=== PATIENT | female | born 1960 | race Caucasian/White ===

== ENCOUNTER → 2017-05-15 | Outpatient (CLI) | payer BC, MEDICARE ==
[2017-05-15 17:38] LABS: Basophils # (A) 0.1 k/uL (0-0.2); Basophils % (A) 1 %; Eosinophils # (A) 0.2 k/uL (0-0.7); Eosinophils % (A) 2 %; HCT 40.8 % (34.0-46.0); HGB 12.5 gm/dL (11.4-16.0); Hypochromasia Moderate; Lymphocytes % (A) 30 %; MCH 26.7 pg (25.0-35.0); MCHC 30.7 g/dL (31.0-37.0); MCV 86.8 fL (80.0-100.0); Mean Platelet Volume 6.5; Monocytes # (A) 0.5 k/uL (0-1.0); Monocytes % (A) 5 %; Neutrophils # (A) 6.3 k/uL (1.3-7.7); Neutrophils % (A) 61 %; Platelet Count 362 k/uL (150-450); RDW 13.5 % (11.5-15.5); WBC 10.3 k/uL (3.8-10.6)
== END | disposition home or self-care (01) ==
LOC: LABPAT 17:13
PROVIDERS: ATTEND Obstetrics & Gynecology Obstetrics
DX: Z01.818 Encounter for other preprocedural examination (principal); Z01.812 Encounter for preprocedural laboratory examination; I10 Essential (primary) hypertension; R93.8 Abnormal findings on diagnostic imaging of other specified body structures
CPT/HCPCS: 36415; 85025; 93005

== ENCOUNTER 2017-05-23 10:24 | Day surgery (SDC) | payer BC ==
[2017-05-12 15:51] VITALS: BMI 45.2
[~2017-05-23 10:24] MED LIST: DEXAMETHASONE SOD PHOSPHATE 10 MG/ML 1 ML VIAL IV ONE; LACTATED RINGERS 1,000 ML IV SCH; MIDAZOLAM 2 MG/2 ML VIAL IV PRN; MORPHINE SULFATE 4 MG/ML SYRINGE IV PRN; ONDANSETRON 4 MG/2 ML VIAL IVP ONE; Pre Op ABX Message 1 EACH MISC MISCELLANE ONE; SCOPOLAMINE 1.5MG/72HR PATCH TRANSDERM ONE
[2017-05-23] MEDS ORDERED: fentaNYL (PF) 50 MCG/ML 2 ML AMP ONE (12:02)
[2017-05-23] MEDS ORDERED: MIDAZOLAM 2 MG/2 ML VIAL ONE (12:02)
[2017-05-23] MEDS ORDERED: LIDOCAINE 1% INJ 10MG/ML (20 ML MDV) ONE (12:02)
[2017-05-23] MEDS ORDERED: PROPOFOL 10 MG/ML 20 ML VIAL IV ONE (12:02)
[2017-05-23] MEDS ORDERED: SUCCINYLCHOLINE CHLORIDE 100 MG/5 ML SYR IV ONE (12:02)
--- NOTE | 2017-05-23 12:35 | P.OP ---
Date of Procedure: 05/23/17 Preoperative Diagnosis: Simple hyperplasia noted on endometrial biopsy Postoperative Diagnosis: Same Procedure(s) Performed: Hysteroscopy, dilation and curettage Anesthesia: CONRADA Surgeon: Kaylan Villa Estimated Blood Loss (ml): 5 IV fluids (ml): 600 Urine output (ml): 50 Pathology: other (Endometrial curettings) Condition: stable Disposition: PACU Indications for Procedure: Patient had noted post menopausal bleeding biopsy in the office was consistent with simple hyperplasia without atypia although scant specimen was noted therefore she is presents today for further evaluation of the endometrial cavity Operative Findings: Atrophic appearing endometrium with small cavity Description of Procedure: Patient was taken to the operating room where general anesthesia was obtained by the anesthesia Department without difficulty. She was then prepped and draped in normal sterile fashion in the dorsal lithotomy position a red rubber catheter was then used to drain the bladder clear yellow urine. A weighted speculum was placed in the posterior vaginal vault the anterior lip of the cervix was visualized and grasped with an Allis. Endocervical canal was then dilated to 15-Macanese and hysteroscope was placed through the cervix with endometrial cavity intact cavity was noted and an atrophic appearing endometrium was noted. At this point the hysteroscope was removed and a sharp curettage was performed until a gritty texture was noted in all 4 quadrants the uterine cavity. A scant sample was was obtained. The Allis was removed from the anterior lip and hemostasis was appreciated. All counts are correct 2 and patient tolerated procedure well
[2017-05-23 13:01] VITALS: TEMP 97
[2017-05-23] MEDS ORDERED: ALBUTEROL NEBULIZED 2.5 MG/3 ML INHALATION STA (13:44)
[2017-05-23 13:53] VITALS: BP 165/89
[2017-05-23 14:23] VITALS: PULSE 67; RESP 18
== END 2017-05-23 14:30 | disposition home or self-care (01) ==
LOC: OR 10:24
PROVIDERS: ATTEND Obstetrics & Gynecology Obstetrics
DX: N85.01 Benign endometrial hyperplasia (principal); N95.0 Postmenopausal bleeding; J45.909 Unspecified asthma, uncomplicated; I10 Essential (primary) hypertension; Z79.899 Other long term (current) drug therapy; Z88.6 Allergy status to analgesic agent; Z88.8 Allergy status to other drugs, medicaments and biological substances; F17.210 Nicotine dependence, cigarettes, uncomplicated
CPT/HCPCS: 94640; 88305; 58558; J2250; J1100; J2405; J2001; J3010; J0330; J2704

== ENCOUNTER → 2017-11-08 | Outpatient (CLI) | payer BC ==
[2017-11-08 10:11] LABS: T4, Free (Free Thyroxine) 1.01 ng/dL (0.78-2.19)
== END | disposition home or self-care (01) ==
LOC: LABWHC1 09:11
PROVIDERS: ATTEND Internal Medicine Endocrinology, Diabetes & Metabolism
DX: E05.90 Thyrotoxicosis, unspecified without thyrotoxic crisis or storm (principal)
CPT/HCPCS: 36415; 84439; 84443; 84480

== ENCOUNTER → 2017-11-17 | Outpatient (CLI) | payer BC ==
--- NOTE | 2017-11-17 13:32 | US ---
EXAMINATION TYPE: US thyroid st tissue head/neck DATE OF EXAM: 11/17/2017 COMPARISON: NONE CLINICAL HISTORY: E05.90 SUBCLINICAL HYPERTHYROIDISM. GLAND SIZE: Right Lobe: 4.4 x 1.4 x 1.5 cm Overall Parenchyma: homogenous Left Lobe: 4.8 x 1.8 x 1.8 cm Overall Parenchyma: homogeneous Isthmus Thickness: 0.3 cm NODULES RIGHT: # of nodules measured on right: 0 LEFT: # of nodules measured on left: several scattered, largest two measured 1. 0.7 X 0.6 x 1.0 cm complex cystic nodule at the anterior mid to upper pole with margins. This n odule is wider than tall and shows no intranodular vascularity. 2. 0.6 X 0.4 x 0.4 cm hypoechoic solid nodule at the posterior mid pole with poorly defined margins. This nodule is taller than wide and shows intranodular vascularity. ISTHMUS: # of nodules measured in the isthmus: 0 Bilateral neck scanned, no evidence of lymphadenopathy. IMPRESSION: Multiple scattered subcentimeter left thyroid nodules and prominent size of the left thyroid lobe. No nodules meet criteria for fine-needle aspiration and therefore surveillance is recommended.
== END | disposition home or self-care (01) ==
LOC: RADUSWWP 12:09
PROVIDERS: ATTEND Internal Medicine Endocrinology, Diabetes & Metabolism
DX: E04.2 Nontoxic multinodular goiter (principal); E05.90 Thyrotoxicosis, unspecified without thyrotoxic crisis or storm
CPT/HCPCS: 76536

== ENCOUNTER → 2018-06-08 | Outpatient (CLI) | payer BC, OTHER | END | disposition home or self-care (01) | LOC: LABWHC1 14:38 | PROVIDERS: ATTEND Internal Medicine Endocrinology, Diabetes & Metabolism | DX: E05.90 Thyrotoxicosis, unspecified without thyrotoxic crisis or storm (principal) | CPT/HCPCS: 36415; 84439; 84443; 84480 ==

== ENCOUNTER → 2018-09-25 | Outpatient (CLI) | payer BC | END | disposition home or self-care (01) | LOC: LABWHC1 14:42 | PROVIDERS: ATTEND Internal Medicine Endocrinology, Diabetes & Metabolism | DX: E05.90 Thyrotoxicosis, unspecified without thyrotoxic crisis or storm (principal) | CPT/HCPCS: 36415; 84439; 84443; 84480 ==

== ENCOUNTER → 2019-01-11 | Outpatient (CLI) | payer BC ==
[2019-01-11 10:04] LABS: HCT 41.2 % (34.0-46.0); HGB 12.6 gm/dL (11.4-16.0); Hypochromasia Moderate; MCH 25.6 pg (25.0-35.0); MCHC 30.6 g/dL (31.0-37.0); MCV 83.9 fL (80.0-100.0); Mean Platelet Volume 6.3; Platelet Count 399 k/uL (150-450); RBC 4.91 m/uL (3.80-5.40); RDW 14.5 % (11.5-15.5); WBC 10.2 k/uL (3.8-10.6)
[2019-01-11 17:41] LABS: Ferritin 36.4 ng/mL (10.0-291.0)
[2019-01-11 17:42] LABS: Estradiol 29.9 pg/mL; Follicle Stimulating Hormone 33.8 mIU/mL
[2019-01-11 17:47] LABS: Vitamin D 25 Hydroxy 33.6 ng/mL (30.0-100.0)
== END | disposition home or self-care (01) ==
LOC: LABWHC1 09:29
PROVIDERS: ATTEND Internal Medicine Endocrinology, Diabetes & Metabolism
DX: D64.9 Anemia, unspecified (principal); E66.9 Obesity, unspecified; L65.9 Nonscarring hair loss, unspecified
CPT/HCPCS: 36415; 82088; 82306; 82670; 82728; 83001; 83002; 84439; 84443; 84480; 85027

== ENCOUNTER → 2019-01-21 | Outpatient (CLI) | payer BC ==
--- NOTE | 2019-01-22 07:45 | US ---
EXAMINATION TYPE: US thyroid st tissue head/neck DATE OF EXAM: 01/21/2019 COMPARISON: Thyroid ultrasound dated 10/02/2018 and 11/17/2017 CLINICAL HISTORY: E04.2 Multinodular goiter. GLAND SIZE: Right Lobe: 4.9 x 1.5 x 1.6 cm Overall Parenchyma: homogenous Left Lobe: 4.9 x 2.1 x 1.9 cm Overall Parenchyma: homogeneous Isthmus Thickness: 0.3 cm NODULES RIGHT: # of nodules measured on right: 0 LEFT: # of nodules measured on left: 2 1. 0.6 X 0.4 x 0.5 cm hypoechoic mixed nodule at the upper pole with well-defined margins; . This nodule is wider than tall and shows no intranodular vascularity. Prior size: 0.6 x 0.5 x 0.6 cm 2. 0.4 X 0.3 x 0.4 cm hypoechoic solid nodule at the mid pole with well-defined margins; calcified r im. This nodule is wider than tall and shows no intranodular vascularity. Prior size: 0.6 x 0.4 x 0.4 cm ISTHMUS: # of nodules measured in the isthmus: 0 Bilateral neck scanned, no evidence of lymphadenopathy. Nodules as described. IMPRESSION: Findings again compatible with a multinodular goiter. No nodules have grown to be greater than 1 cm, overall no interval growth.
== END | disposition home or self-care (01) ==
LOC: RADUSWWP 16:01
PROVIDERS: ATTEND Internal Medicine Endocrinology, Diabetes & Metabolism
DX: E04.2 Nontoxic multinodular goiter (principal)
CPT/HCPCS: 76536

== ENCOUNTER → 2019-04-15 | Outpatient (CLI) | payer BC ==
[2019-04-16 01:05] LABS: T4, Free (Free Thyroxine) 1.1 ng/dL (0.80-1.80)
== END | disposition home or self-care (01) ==
LOC: LABWHC1 15:46
PROVIDERS: ATTEND Internal Medicine Endocrinology, Diabetes & Metabolism
DX: E05.90 Thyrotoxicosis, unspecified without thyrotoxic crisis or storm (principal)
CPT/HCPCS: 36415; 84439; 84443; 84480

== ENCOUNTER → 2019-06-10 | Outpatient (CLI) | payer BC ==
--- NOTE | 2019-06-11 11:10 | US ---
EXAMINATION TYPE: US thyroid st tissue head/neck DATE OF EXAM: 06/10/2019 COMPARISON: US 2019 CLINICAL HISTORY: E04.2 MULTINODULAR GOITER. Neck tenderness, history of thyroid nodules, patient on thyroid meds GLAND SIZE: Right Lobe: 4.5 x 1.7 x 1.8 cm Overall Parenchyma: heterogenous Left Lobe: 4.8 x 2.3 x 1.9 cm Overall Parenchyma: heterogeneous Isthmus Thickness: 0.4 cm NODULES RIGHT: # of nodules measured on right: 0 LEFT: # of nodules measured on left: 1 1. 0.6 X 0.4 x 0.5 cm hypoechoic mixed nodule at the mid pole with well-defined margins. This nodul e is wider than tall and shows no intranodular vascularity. Prior size: 0.6 x 0.4 x 0.5 cm ISTHMUS: # of nodules measured in the isthmus: 0 Bilateral neck scanned, no evidence of lymphadenopathy. IMPRESSION: 1. Subcentimeter nodule left lobe thyroid
== END | disposition home or self-care (01) ==
LOC: RADUSWWP 15:29
PROVIDERS: ATTEND Internal Medicine Endocrinology, Diabetes & Metabolism
DX: E04.2 Nontoxic multinodular goiter (principal)
CPT/HCPCS: 76536

== ENCOUNTER → 2019-06-12 | Outpatient (CLI) | payer BC ==
--- NOTE | 2019-06-12 14:47 | XR ---
EXAMINATION TYPE: XR chest 2V DATE OF EXAM: 06/12/2019 COMPARISON: 04/13/2012 TECHNIQUE: PA and lateral views submitted. HISTORY: Cough FINDINGS: The lungs are clear and there is no pneumothorax, pleural effusion, or focal pneumonia. Heart size mildly prominent. Coarsened interstitium. Hypertrophic and degenerative changes of the spine. Surgica l clips in the abdomen. Arthropathy of the shoulders. Biapical pleural thickening. Mild prominence th e right paratracheal region is stable dating back to 2012 and therefore benign. IMPRESSION: 1. Correlate for bronchitis or interstitial pneumonitis.
== END | disposition home or self-care (01) ==
LOC: RADXRWHC 14:27
PROVIDERS: ATTEND Allergy & Immunology
DX: R05 Cough (principal)
CPT/HCPCS: 71046

== ENCOUNTER → 2019-06-18 | Outpatient (CLI) | payer BC ==
[2019-06-18 17:47] LABS: Basophils % (A) 0 %; Eosinophils # (A) 0.2 k/uL (0-0.7); Eosinophils % (A) 1 %; HCT 46.2 % (34.0-46.0); HGB 14.1 gm/dL (11.4-16.0); Hypochromasia Slight; Lymphocytes # (A) 4.9 k/uL (1.0-4.8); Lymphocytes % (A) 24 %; MCH 25.1 pg (25.0-35.0); MCHC 30.5 g/dL (31.0-37.0); MCV 82.2 fL (80.0-100.0); Mean Platelet Volume 7.9; Monocytes # (A) 1.3 k/uL (0-1.0); Monocytes % (A) 6 %; Neutrophils # (A) 13.6 k/uL (1.3-7.7); Neutrophils % (A) 67 %; Platelet Count 489 k/uL (150-450); RBC 5.62 m/uL (3.80-5.40); RDW 15.3 % (11.5-15.5); WBC 20.3 k/uL (3.8-10.6)
[2019-06-18 23:49] LABS: African American GFR (CKD) 70.4 (60.0-200.0); Non-African American GFR(CKD) 60.8 (60.0-200.0)
== END | disposition home or self-care (01) ==
LOC: LABWHC1 16:29
PROVIDERS: ATTEND Allergy & Immunology
DX: E55.9 Vitamin D deficiency, unspecified (principal); J30.2 Other seasonal allergic rhinitis; R53.83 Other fatigue
CPT/HCPCS: 36415; 82306; 82565; 82785; 84520; 85025

== ENCOUNTER → 2019-10-22 | Outpatient (CLI) | payer BC ==
--- NOTE | 2019-10-22 14:34 | XR ---
Thoracic spine and lumbar spine HISTORY: Chronic back pain 3 views of the thoracic spine and 3 views the lumbar spine are submitted. There is multilevel spondylosis. Contrast material present within the renal collecting systems is due to patient's contrast-enhanced CT same date. Minimal anterolisthesis grade 1 at L4-5. Sclerosis is p resent in the posterior elements of the lower lumbar spine. Thoracic and lumbar vertebral bodies show preserved height and bone mineralization. Loss of disc height is present at L4-5, disc spaces are re latively uniform in the thoracic spine. Degenerative disc changes are present in the cervical spine. IMPRESSION: Degenerative disc disease, facet arthropathy.
--- NOTE | 2019-10-22 17:31 | CT ---
EXAMINATION TYPE: CT chest w con DATE OF EXAM: 10/22/2019 COMPARISON: Chest radiograph 06/12/2019. HISTORY: cough CT DLP: 869 mGycm Automated exposure control for dose reduction was used. CONTRAST: CT scan of the chest is performed with IV Contrast, patient injected with 100 mL of Isovue 300. FINDINGS: LUNGS: The lungs are grossly clear, there is no concerning parenchymal mass or nodule identified. T here is no pleural effusion or pneumothorax seen. The tracheobronchial tree is patent. MEDIASTINUM: There are no greater than 1 cm hilar or mediastinal lymph nodes. No pericardial effusi on is seen. Cardiac size normal. Right coronary artery disease. OTHER: Fatty enlarged liver. No adrenal nodule. IMPRESSION: 1. No acute pulmonary process. 2. Fatty liver with hepatomegaly.
== END | disposition home or self-care (01) ==
LOC: RADCTMAIN 12:16
PROVIDERS: ATTEND Allergy & Immunology
DX: M51.36 Other intervertebral disc degeneration, lumbar region (principal); M46.96 Unspecified inflammatory spondylopathy, lumbar region; R05 Cough; K76.0 Fatty (change of) liver, not elsewhere classified
CPT/HCPCS: 72072; 72100; 71260; Q9967

== ENCOUNTER → 2020-01-17 | Outpatient (CLI) | payer BC ==
--- NOTE | 2020-01-17 15:55 | US ---
EXAMINATION TYPE: US kidneys/renal and bladder DATE OF EXAM: 01/17/2020 COMPARISON: Lumbar spine x-ray October 22, 2019 CLINICAL HISTORY: R31.9 hematuria. EXAM MEASUREMENTS: Right Kidney: 11.6 x 6.1 x 4.6 cm Left Kidney: 12.1x 6.5 x 4.8 cm Post Void Residual Volume: no volume seen to measure Right Kidney: lateral cyst noted mid pole = 0.9 x 0.7 x 0.5cm, parallel hyperechoic vessel wall calci fications noted lateral mid pole Left Kidney: upper mid cyst = 09 x 0.9 x 0.9cm Bladder: thickened wall noted with mildly filled bladder Bilateral Jets seen: yes Normal Post Void Residual: no volume seen to measure There is no evidence for hydronephrosis at this point in time. Technologist identifies few tiny simpl e appearing thin-walled cysts bilaterally. The urinary bladder is not greatly distended and is thus suboptimally evaluated. Bilateral ureteral jets are seen. IMPRESSION: Source of hematuria not identified. Further investigation with multiphase contrast-enhanc ed CT is advised if symptoms persist.
== END | disposition home or self-care (01) ==
LOC: RADUSWWP 14:58
PROVIDERS: ATTEND Urology
DX: R31.9 Hematuria, unspecified (principal)
CPT/HCPCS: 76770

== ENCOUNTER → 2020-06-16 | Outpatient (CLI) | payer BC ==
--- NOTE | 2020-06-16 16:55 | XR ---
EXAMINATION TYPE: XR chest 2V DATE OF EXAM: 06/16/2020 COMPARISON: Chest x-ray June 12, 2019 HISTORY: Right-sided chest pain. TECHNIQUE: Frontal and lateral views of the chest are obtained. FINDINGS: There is no suspicious new focal air space opacity, pleural effusion, or pneumothorax seen . The cardiac silhouette size is stable and mildly enlarged.. The osseous structures are intact. IMPRESSION: Cardiomegaly without new acute pulmonary process.
--- NOTE | 2020-06-16 16:57 | XR ---
EXAMINATION TYPE: XR shoulder complete RT DATE OF EXAM: 06/16/2020 CLINICAL HISTORY: Right shoulder pain. TECHNIQUE: Three views of the right shoulder are obtained. COMPARISON: None. FINDINGS: There is no acute fracture/dislocation evident in the right shoulder. Mild to moderate nancy rowing and spurring glenohumeral joint. Mild narrowing acromioclavicular joint. The visualized ribs are intact and unremarkable. IMPRESSION: As above.
== END ==
LOC: RADXRMAIN 16:08
PROVIDERS: ATTEND Family Medicine
DX: M25.811 Other specified joint disorders, right shoulder (principal); I51.7 Cardiomegaly
CPT/HCPCS: 71046

== ENCOUNTER → 2020-06-23 | Outpatient (CLI) | payer BC ==
[2020-06-24 06:45] LABS: T4, Free (Free Thyroxine) 1.1 ng/dL (0.80-1.80)
== END | disposition home or self-care (01) ==
LOC: LABWHC1 12:06
PROVIDERS: ATTEND Internal Medicine Endocrinology, Diabetes & Metabolism
DX: E05.90 Thyrotoxicosis, unspecified without thyrotoxic crisis or storm (principal)
CPT/HCPCS: 36415; 84439; 84443; 84480

== ENCOUNTER → 2020-09-04 | Outpatient (CLI) | payer BC ==
--- NOTE | 2020-09-04 16:39 | XR ---
Bilateral knees HISTORY: Trauma and pain 2 views of each knee Patient is status post left and right knee arthroplasty. There is anatomic alignment bilaterally. No evident fracture or dislocation. No sizable joint effusion. After describing vascular calcifications are present. Question some soft tissue swelling. IMPRESSION: Postop changes. Left tissue swelling.
== END | disposition home or self-care (01) ==
LOC: RADXRMAIN 15:11
PROVIDERS: ATTEND Physician Assistant Medical
DX: M25.561 Pain in right knee (principal); M25.462 Effusion, left knee

== ENCOUNTER → 2020-11-18 | Outpatient (CLI) | payer BC ==
[2020-11-19 17:06] LABS: T4, Free (Free Thyroxine) 1.2 ng/dL (0.80-1.80)
== END | disposition home or self-care (01) ==
LOC: LABWHC1 15:30
PROVIDERS: ATTEND Internal Medicine Endocrinology, Diabetes & Metabolism
DX: E05.90 Thyrotoxicosis, unspecified without thyrotoxic crisis or storm (principal)
CPT/HCPCS: 36415; 84439; 84443; 84480

== ENCOUNTER → 2020-12-22 | Outpatient (CLI) | payer BC ==
--- NOTE | 2020-12-22 19:37 | US ---
EXAMINATION TYPE: US thyroid st tissue head/neck DATE OF EXAM: 12/22/2020 COMPARISON: 06/10/2019 CLINICAL HISTORY: 60-year-old female E04.2 multi nodular goiter. Thyroid nodule, patient on thyroid m eds GLAND SIZE: Right Lobe: 6.1 x 4.9 x 1.4 cm Overall Parenchyma: heterogenous Left Lobe: 4.7 x 1.8 x 1.9 cm Overall Parenchyma: heterogeneous Isthmus Thickness: 0.4 cm NODULES RIGHT: # of nodules measured on right: 0 LEFT: # of nodules measured on left: 0 ISTHMUS: # of nodules measured in the isthmus: 0 Bilateral neck scanned, no evidence of lymphadenopathy. IMPRESSION: Borderline to mild thyromegaly with an asymmetrically larger right lobe. Findings may reflect goiter or diffuse thyroiditis. No discrete nodule.
== END | disposition home or self-care (01) ==
LOC: RADUSWWP 14:44
PROVIDERS: ATTEND Internal Medicine Endocrinology, Diabetes & Metabolism
DX: E01.0 Iodine-deficiency related diffuse (endemic) goiter (principal)
CPT/HCPCS: 76536

== ENCOUNTER → 2021-01-26 | Outpatient (CLI) | payer BC ==
--- NOTE | 2021-01-26 15:50 | XR ---
EXAMINATION TYPE: XR Hip Complete LT DATE OF EXAM: 01/26/2021 COMPARISON: NONE HISTORY: Pain TECHNIQUE: 2 views submitted FINDINGS: There is no evidence of erosive change or acute fracture. Hypertrophic change of the acetabulum. Arth ropathy of the hip joint. Mild to moderate concentric narrowing of the joint space. IMPRESSION: 1. Hip arthropathy correlate for femoral acetabular impingement. 2. Sacroiliitis.
== END | disposition home or self-care (01) ==
LOC: RADXRMAIN 15:22
PROVIDERS: ATTEND Physician Assistant
DX: M16.12 Unilateral primary osteoarthritis, left hip (principal)
CPT/HCPCS: 73502

== ENCOUNTER → 2021-05-04 | Outpatient (CLI) | payer BC ==
[2021-05-04 18:18] LABS: T4, Free (Free Thyroxine) 1.06 ng/dL (0.800-1.800)
== END | disposition home or self-care (01) ==
LOC: LABWHC1 13:46
PROVIDERS: ATTEND Internal Medicine Endocrinology, Diabetes & Metabolism
DX: E05.90 Thyrotoxicosis, unspecified without thyrotoxic crisis or storm (principal)
CPT/HCPCS: 36415; 84439; 84443; 84480

== ENCOUNTER → 2021-08-19 | Outpatient (CLI) | payer BC | END | disposition home or self-care (01) | LOC: RADMAMWWP 16:25 | PROVIDERS: ATTEND Family Medicine | DX: Z53.9 Procedure and treatment not carried out, unspecified reason (principal) ==

== ENCOUNTER → 2021-09-07 | Outpatient (CLI) | payer BC ==
[2021-09-07 15:21] LABS: T4, Free (Free Thyroxine) 1.09 ng/dL (0.800-1.800)
== END | disposition home or self-care (01) ==
LOC: LABWHC1 08:20
PROVIDERS: ATTEND Internal Medicine Endocrinology, Diabetes & Metabolism
DX: E05.90 Thyrotoxicosis, unspecified without thyrotoxic crisis or storm (principal)
CPT/HCPCS: 36415; 84439; 84443; 84480

== ENCOUNTER 2022-01-07 10:36 | Day surgery (SDC) | payer BC ==
[2022-01-05 11:44] VITALS: BMI 43.2
[2022-01-07] MEDS: LACTATED RINGERS 1,000 ML IV SCH ×2 (12:10→12:29)
[2022-01-07 12:16] VITALS: TEMP 97.6
[2022-01-07] MEDS ORDERED: PROPOFOL 10 MG/ML 20 ML VIAL IV ONE (12:35)
--- NOTE | 2022-01-07 12:55 | P.PCN ---
Date of Procedure: 01/07/22 Procedure(s) Performed: BRIEF HISTORY: Patient is a 61-year-old pleasant white female scheduled for an elective colonoscopy as a part of her colon cancer and positive cologuard. PROCEDURE PERFORMED: Colonoscopy. PREOPERATIVE DIAGNOSIS: Screening for colon cancer and positive cologuard. IV sedation per Anesthesia. PROCEDURE: After informed consent was obtained, the patient, was brought into the endoscopy unit. IV sedation was administered by Anesthesia under continuous monitoring. Digital rectal examination was normal. Initially the Olympus CF-160 flexible video colonoscope was then inserted in the rectum, gradually advanced into the cecum without any difficulty. Careful examination was performed as the scope was gradually being withdrawn. Ileocecal valve and the appendiceal orifice were visualized and appeared normal. Prep was fair. Thorough irrigation was performed.. Mucosa of the cecum, ascending colon, transverse colon, descending colon, sigmoid colon, and rectum appeared normal. At her sigmoid diverticula seen. Retroflexion was performed in the rectum and no lesions were seen. The patient tolerated the procedure well. IMPRESSION: Normal-appearing colon from rectum to cecum with no evidence of colorectal neoplasia. Scattered sigmoid diverticulosis. RECOMMENDATIONS: Findings of this examination were discussed with the patient well as her family. She was advised to have a repeat screening colonoscopy in 10 years..
[2022-01-07] MEDS ORDERED: IV FLUID CONTINUATION 1,000 ML IV ONE (13:00)
[2022-01-07 13:10] VITALS: RESP 16
[2022-01-07 13:35] VITALS: BP 134/76; PULSE 78
== END 2022-01-07 13:36 | disposition home or self-care (01) ==
LOC: ORWHC2ENDO 10:36
PROVIDERS: ATTEND Internal Medicine Gastroenterology
DX: K57.30 Diverticulosis of large intestine without perforation or abscess without bleeding (principal); I10 Essential (primary) hypertension; J44.9 Chronic obstructive pulmonary disease, unspecified; E03.9 Hypothyroidism, unspecified; Z79.899 Other long term (current) drug therapy
CPT/HCPCS: 45378; J2704

== ENCOUNTER → 2022-02-22 | Outpatient (CLI) | payer BC ==
[2022-02-22 23:39] LABS: T4, Free (Free Thyroxine) 1.13 ng/dL (0.800-1.800)
== END | disposition home or self-care (01) ==
LOC: LABWHC1 14:56
PROVIDERS: ATTEND Internal Medicine Endocrinology, Diabetes & Metabolism
DX: E05.90 Thyrotoxicosis, unspecified without thyrotoxic crisis or storm (principal)
CPT/HCPCS: 36415; 84439; 84443; 84480